=== PATIENT | female | born 1940 | race Caucasian/White ===

== ENCOUNTER 2023-10-17 15:48 | Outpatient (CLI) | payer MEDICARE, OTHER ==
[2023-10-17] MEDS ORDERED: iohexol 300mg/ml 100ml inj. ONE (15:55)
== END 2023-10-17 23:59 | disposition home or self-care (01) ==
LOC: 64 CT 15:48
PROVIDERS: ATTEND Specialist
DX: K44.9 Diaphragmatic hernia without obstruction or gangrene (principal); K86.89 Other specified diseases of pancreas; N85.4 Malposition of uterus; M51.36 Other intervertebral disc degeneration, lumbar region; N28.89 Other specified disorders of kidney and ureter; K26.1 Acute duodenal ulcer with perforation
CPT/HCPCS: 74178; J3490; Q9967